=== PATIENT | female | born 1980 | race Caucasian/White ===

== ENCOUNTER 2018-06-08 10:02 | Day surgery (SDC) | payer SELFPAY ==
--- NOTE | 2018-06-08 09:52 | PDANEPAE ---
ANE History of Present Illness 37 yo female desiring abdominoplasty. ANE Past Medical History - Cardiovascular History Hx Hypertension: No Hx Arrhythmias: No Hx Chest Pain: No Hx Coronary Artery / Peripheral Vascular Disease: No Hx CHF / Valvular Disease: No Hx Palpitations: No - Pulmonary History Hx COPD: No Hx Asthma/Reactive Airway Disease: Yes Hx Recent Upper Respiratory Infection: No Hx Oxygen in Use at Home: No Hx Sleep Apnea: Yes Sleep Apnea Screening Result - Last Documented: Positive - Neurologic History Hx Cerebrovascular Accident: No Hx Seizures: No Hx Dementia: No - Endocrine History Hx Diabetes: No Hypothyroid: No Hyperthyroid: No Obesity: severe - Renal History Hx Renal Disorders: No - Liver History Hx Hepatic Disorders: No - Neurological & Psychiatric Hx Hx Neurological and Psychiatric Disorders: No - Cancer History Hx Cancer: No - Congenital Disorder History Hx Congenital Disorders: No - GI History Hx Gastrointestinal Disorders: No - Other Health History Other Health History: none - Chronic Pain History Chronic Pain: No - Surgical History Prior Surgeries: none ANE Review of Systems Review of Systems: - Exercise capacity METS (RN): 4 METS ANE Patient History - Allergies Allergies/Adverse Reactions: No Known Allergies Allergy (Verified 06/07/18 15:57) - Home Medications Home Medications: NK [No Known Home Meds] 06/07/18 [Last Taken Unknown] - Smoking Hx Smoking Status: Never smoked - Family Anes Hx Family Hx Anesthesia Complications: none ANE Labs/Vital Signs - Vital Signs Height: 154.94 cm Weight: 100.244 kg ANE Physical Exam - ASA Status ASA Status: III ANE Anesthesia Plan Anesthesia Plan: general endotracheal anesthesia
[2018-06-08] MEDS ORDERED: LIDOCAINE 1% 2 ML INJ ID PRN (10:10)
[2018-06-08] MEDS ORDERED: LR 1,000 ML IV ONE (10:10)
[2018-06-08] MEDS ORDERED: ceFAZolin 3 GM in D5W 100 ML IV ONE (10:20)
--- NOTE | 2018-06-08 10:33 | GHP ---
[f rep st] PREOP HISTORY AND PHYSICAL DATE OF ADMISSION: 06/08/2018 CHIEF COMPLAINT: Abdominal laxity. HISTORY OF PRESENTING COMPLAINT: The patient is a 37-year-old woman who has had 5 children. She has sustained significant stretching out of the abdominal tissue and seeks a tummy tuck. PAST MEDICAL HISTORY: She is healthy, but substantially overweight. She may have had borderline diabetes in the past. She probably has sleep apnea but does not use a CPAP machine. MEDICATIONS: None. ALLERGIES: None known. PAST SURGICAL HISTORY: No previous surgeries. EXAMINATION: GENERAL APPEARANCE: She is a healthy, overweight, 37-year-old female. VITAL SIGNS: Stable. Her height is 5 feet 1. She weighs 221.9 pounds for a BMI of 41.9. CARDIOVASCULAR: Heart sounds are normal. RESPIRATORY : Chest is clear with good air entry. ABDOMEN: Reveals significant abdominal tissue laxity in excess. IMPRESSION: Fit for procedure. PLAN: Abdominoplasty. /[id number]/MODL MTDD
[2018-06-08] MEDS ORDERED: LIDO/EPI 1% **for epidural** 30 ML SDV ONE (10:34)
[2018-06-08] MEDS ORDERED: BUPIVACAINE 0.25% 30 ML SDV ONE (10:34)
[2018-06-08] MEDS ORDERED: EPINEPHrine 1 MG/ML INJ ONE (10:34)
--- NOTE | 2018-06-08 10:38 | PDANEPAE ---
ANE History of Present Illness 37 year old female for abdominoplasty. ANE Past Medical History - Cardiovascular History Hx Hypertension: No Hx Arrhythmias: No Hx Chest Pain: No Hx Coronary Artery / Peripheral Vascular Disease: No Hx CHF / Valvular Disease: No Hx Palpitations: No - Pulmonary History Hx COPD: No Hx Asthma/Reactive Airway Disease: Yes Hx Recent Upper Respiratory Infection: No Hx Oxygen in Use at Home: No Hx Sleep Apnea: Yes Sleep Apnea Screening Result - Last Documented: Positive - Neurologic History Hx Cerebrovascular Accident: No Hx Seizures: No Hx Dementia: No - Endocrine History Hx Diabetes: No Hypothyroid: No Hyperthyroid: No Obesity: moderate - Renal History Hx Renal Disorders: No - Liver History Hx Hepatic Disorders: No - Neurological & Psychiatric Hx Hx Neurological and Psychiatric Disorders: No - Cancer History Hx Cancer: No - Congenital Disorder History Hx Congenital Disorders: No - GI History Hx Gastrointestinal Disorders: No - Other Health History Other Health History: none - Chronic Pain History Chronic Pain: No - Surgical History Prior Surgeries: none ANE Review of Systems Review of systems is: negative Review of Systems: - Exercise capacity Exercise capacity: >=4 METS METS (RN): 4 METS ANE Patient History - Allergies Allergies/Adverse Reactions: No Known Allergies Allergy (Verified 06/08/18 10:19) - Home Medications Home medications: home medication list seen and reviewed Home Medications: NK [No Known Home Meds] 06/07/18 [Last Taken Unknown] - NPO status NPO Status: no food or drink >8 hours NPO Since - Liquids (Date): 06/07/18 NPO Since - Liquids (Time): 21:00 NPO Since - Solids (Date): 06/07/18 NPO Since - Solids (Time): 21:00 - Anes Hx Anes Hx: no prior problems - Smoking Hx Smoking Status: Never smoked Marijuana use: No - Alcohol Use Alcohol Use: Rarely - Family Anes Hx Family Anes Hx: neg - N/A Family Hx Anesthesia Complications: none ANE Labs/Vital Signs - Vital Signs Vital Signs: reviewed preoperatively; see RN documention for details Height: 154.94 cm Weight: 100.244 kg ANE Physical Exam - Airway Neck exam: FROM Mallampati Score: Class 3 Mouth exam: normal dental/mouth exam - Pulmonary Pulmonary: no respiratory distress - Cardiovascular Cardiovascular: regular rate and rhythym - ASA Status ASA Status: II ANE Anesthesia Plan Anesthesia Plan: general endotracheal anesthesia Total IV Anesthesia: No
[2018-06-08] MEDS ORDERED: MIDAZOLAM 2 MG/2 ML VIAL IVP ONE (10:47)
[2018-06-08] MEDS ORDERED: MIDAZOLAM 2 MG/2 ML VIAL ONE (10:47)
[2018-06-08] MEDS ORDERED: PROPOFOL 200 MG/20 ML VIAL ONE (10:49)
[2018-06-08] MEDS ORDERED: fentaNYL 100 MCG/2 ML INJ ONE ×3 (10:49→14:27)
[2018-06-08] MEDS ORDERED: ROCURONIUM 50 MG/5 ML VIAL ONE (10:50)
[2018-06-08] MEDS ORDERED: LIDOCAINE 2% 5 ML SDV ONE (10:50)
[2018-06-08] MEDS ORDERED: ceFAZolin 2 GM/DEXTROSE 100 ML IV ONE (11:00)
[2018-06-08] MEDS ORDERED: DEXAMETHASONE 4 MG/ML VIAL ONE (11:45)
[2018-06-08] MEDS ORDERED: ONDANSETRON 4 MG/2 ML VIAL ONE ×2 (11:45→15:04)
[2018-06-08] MEDS ORDERED: PROPOFOL/EMULSION 500 MG/50 ML BOTTLE IV ONE ×2 (11:46→12:44)
[2018-06-08] MEDS ORDERED: SUGAMMADEX SODIUM 200 MG/2 ML VIAL IVP ONE (13:46)
[2018-06-08] MEDS ORDERED: HYDROmorphONE/DILAUDID 1 MG/ML INJ IVP PRN (13:49)
[2018-06-08] MEDS ORDERED: NALOXONE HCL 0.4 MG/ML INJ IVP PRN (13:49)
[2018-06-08] MEDS ORDERED: fentaNYL 100 MCG/2 ML INJ IVP PRN (13:49)
[2018-06-08] MEDS ORDERED: HYDROCODONE/APAP 5/325 TAB PO PRN (13:49)
[2018-06-08] MEDS ORDERED: PHENYLEPHRINE HCL 100 MCG/ML SYR IVP PRN (13:49)
[2018-06-08] MEDS ORDERED: LR 500 ML IV PRN (13:49)
[2018-06-08] MEDS ORDERED: ONDANSETRON 4 MG/2 ML VIAL IVP PRN (13:49)
--- NOTE | 2018-06-08 14:12 | POSTOPPROG ---
Post Op Note Date of Operation: 06/08/18 Surgeon: Garo Lerma Anesthesia: GET(General Endotracheal) Pre-op Diagnosis: Abdominal tissue laxity and excess Post-op Diagnosis: same Procedure: Abdominoplasty Inf/Abcess present in the surg proc area at time of surgery?: No EBL: 50-100 Drains: Hemovac
--- NOTE | 2018-06-08 14:19 | GOP ---
[f rep st] OPERATIVE REPORT DATE OF OPERATION: 06/08/2018 SURGEON: Garo Lerma MD PREOPERATIVE DIAGNOSIS: Abdominal laxity and fat deposits. POSTOPERATIVE DIAGNOSIS: Abdominal laxity and fat deposits. PROCEDURE PERFORMED: Abdominoplasty. FINDINGS: DESCRIPTION OF PROCEDURE: With the patient lying supine under general anesthesia, anterior abdominal region was prepped and draped in the usual fashion. Incision was made according to preoperative mar kings across the lower abdomen and dissection was taken down through subcutaneous fat to the abdomina l muscle fascia. Dissection then was swept superiorly up to the level of the rib cage bilaterally an d the xiphoid in the midline. The umbilicus was preserved on its own stalk. Excess skin and fat wer e excised along with most of the sub-Jeyson fat from the upper abdomen. Total weight of the specimen was 5064 g. Bleeders were controlled with electrocautery. Rectus diastasis was corrected with a se benoit of [id number] sutures followed by running horizontal mattress sutures of 0 Ethibond. Jacks on-Stallworth drains were placed and space was minimized with the use of progressive tension mattress sutures between the abdominal fat and underlying muscle of 3-0 Stratafix. The skin was closed with 3-0 Stratafix running subcuticular sutures. The drains were sutured with 2-0 silk. The umbilicus wa s brought out and sutured with 5-0 Prolene. Dressings of Steri-Strips and gauze were applied across the lower abdomen and dressing of Xeroform and gauze to the umbilicus and to the drain sites. The pr ocedure was tolerated well. Estimated blood loss 75 mL. /[id number]/MODL
[2018-06-08] MEDS ORDERED: KETOROLAC 30 MG/1 ML SDV ONE (14:27)
[2018-06-08] MEDS ORDERED: KETOROLAC 30 MG/1 ML SDV IVP ONE (14:30)
[2018-06-08] MEDS ORDERED: HYDROCODONE/APAP 5/325 TAB ONE (15:27)
[2018-06-08 17:32] VITALS: BP 105/69
== END 2018-06-08 17:51 | disposition home or self-care (01) ==
LOC: FSGY 10:02
PROVIDERS: ATTEND Plastic Surgery
PROC: 0J080ZZ Alteration of Abdomen Subcutaneous Tissue and Fascia, Open Approach (ICD-10-PCS; principal; 2018-06-08 10:00)
DX: Z41.1 Encounter for cosmetic surgery (principal); L98.7 Excessive and redundant skin and subcutaneous tissue; E65 Localized adiposity; E66.9 Obesity, unspecified; Z68.41 Body mass index [BMI] 40.0-44.9, adult
CPT/HCPCS: J0171; J0690; J1100; J1885; J2250; J2405; J2704; J3010